=== PATIENT | female | born 1985 | race Caucasian/White ===

== ENCOUNTER 2017-11-17 12:05 | Inpatient (IN) ==
--- NOTE | 2017-11-17 13:09 | P.HPOB ---
Patient Name: Rubi Chew Date of : 89 Patient Status: Emergency Emergency Provider: Marvin Orourke Date: 11/17/17 13:03 Initialization Date: 11/17/17 13:03 History of Present Illness Primary Care Physician: No Primary Care Physician History of Present Illness: 31-year-old primigravida at 40 weeks 5 days gestation who comes today with complaint of contractions for the past 11 hours. She denies leakage of fluid or bleeding. She reports she was not dilated in the office yesterday. Obstetrical history: Primigravida followed by Dr. Schumacher. course has been uncomplicated. She reports being GBS negative. Review of Systems All other systems reviewed negative except as stated in HPI PMFSH - Medical / Surgical Hx Neg / Unobtainable Medical Problems Denied: Yes Surgical History: No Previous Surgery - Tobacco History Tobacco Use In Past 30 Days: No Smoking Status: Never smoker - Alcohol History How Often Do You Have a Drink Containing Alcohol: Monthly or less - Substance Use History Substance History: No History of Abuse - Travel History History of Recent Travel: No Recent Travel Out of the Country Within the Last 8 Weeks: No Exam Vital signs: Vital Signs 11/17/17 12:38 Temperature 98.2 F Pulse Rate 89 Respiratory Rate 18 Blood Pressure 128/86 Narrative: GENERAL: Well-nourished, well-developed patient. SKIN: Warm and dry. HEAD: Normocephalic and atraumatic. EYES: No scleral icterus. No injection or drainage. ENT: No nasal drainage noted. Mucous membranes pink. Airway patent. NECK: Supple, trachea midline. No JVD. CARDIOVASCULAR: Regular rate and rhythm without murmurs, gallops, or rubs. RESPIRATORY: Breath sounds equal bilaterally. No accessory muscle use. ABDOMEN/GI: Abdomen soft, non-tender, bowel sounds present, no rebound, no guarding Gravid to [-] weeks size Fundal Height: [-] GENITOURINARY: External Genitalia: intact and normal in appearance BUS glands: [Negative-] Cervix: [-] Dilatation: [2-] Effacement: [90-] Station: [--2] Presentation: [Vertex-] Membranes: [intact ] Uterine Contractions: [-Every 2] FHT's: Category: [1-] Baseline: [-] Reactive: [Yes-] Variability: [-] Decels: [-No] EXTREMITIES: No cyanosis or edema. BACK: Nontender without obvious deformity. No CVA tenderness. NEUROLOGICAL: Awake and alert. Motor and sensory grossly within normal limits. Five out of 5 muscle strength in all muscle groups. Normal speech. Assessment and Plan - Plan Assessment: Primigravida at 40 weeks 5 days gestation in early labor with a category 1 heart rate Plan: Admit for labor management. Discharge Plan - Discharge Disposition Patient Disposition: 30 Still Patient - Discharge Condition Condition: Stable - Physicians Team ED Provider: Marvin Orourke Primary Care Provider: Primary Care Physici,No - Discharge Instructions Print Language: Cook Islander
[2017-11-17] MEDS ORDERED: Sod Chloride 0.9% Inj 1,000 ML IV.CONT PRN (13:11)
[2017-11-17] MEDS ORDERED: Oxytocin 30 Units/500ml Premix 30 UNITS/500 ML BAG IV.SIG ONE (13:11)
[2017-11-17] MEDS ORDERED: Naloxone Inj 0.4 MG/ML Vial IV.PUSH PRN (13:11)
[2017-11-17] MEDS ORDERED: Sodium Chlor 0.9% Inj 500 ML IV.SIG PRN (13:11)
[2017-11-17] MEDS ORDERED: fentaNYL Citrate Inj 100 MCG/2 ML Ampul IV.PUSH PRN ×2 (13:11)
[2017-11-17] MEDS ORDERED: Citric Acid/Sodium Citrate Liq 30 ML UDC PO SCH (13:15)
[2017-11-17 14:36] LABS: Baso % (Auto) 0.3 % (0.0-2.0); Eos % (Auto) 0.2 % (0.0-4.0); Hematocrit 32.3 % (35.0-46.0); Hemoglobin 10.6 gm/dL (11.6-15.3); Lymph # (Auto) 1.4 th/mm3 (1.0-4.8); Lymph % (Auto) 12.8 % (9.0-44.0); Mean Corpuscular HGB Conc 32.9 % (32.0-36.0); Mean Corpuscular Hemoglobin 29.2 pg (27.0-34.0); Mean Corpuscular Volume 88.9 fL (80.0-100.0); Mean Platelet Volume 8.5 fL (7.0-11.0); Mono # (Auto) 0.9 th/mm3 (0.0-0.9); Mono % (Auto) 7.7 % (0.0-8.0); Neut # (Auto) 8.8 th/mm3 (1.8-7.7); Platelet Count 226 th/mm3 (150-450); Red Blood Count 3.63 mil/mm3 (4.00-5.30); Red Cell Distribution Width 13.3 % (11.6-17.2); White Blood Count 11.1 th/mm3 (4.0-11.0)
[2017-11-17 14:48] LABS: Bacteria,Urine Rare /hpf; Bilirubin,Urine Negative (Negative); Clarity,Urine Clear (Clear); Color,Urine Yellow (Yellw/Straw); Glucose,Urine (UA) Negative (Negative); Leukocyte Esterase,Urine Negative (Negative); Nitrite,Urine Negative (Negative); Squamous Epithelial Cell,Urine <1 /hpf (0-5)
[2017-11-17 15:21] LABS: Amphetamine Screen,Urine Neg (Neg); Barbiturate Screen,Urine Neg (Neg); Cannabinoid Screen,Urine Neg (Neg); Cocaine Screen,Urine Neg (Neg)
[2017-11-17 15:28] LABS: Opiate Screen,Urine Neg (Neg)
[2017-11-17] MEDS ORDERED: fentaNYL 2MCG-Bupiv 0.125% Epi 150 ML EPIDURAL ONE (22:11)
[2017-11-17] MEDS ORDERED: Lidocaaine 1.5%/Epinephrine 1:200,000 PF Inj 5 ML Amp ONE (22:18)
[2017-11-17] MEDS ORDERED: Lidocaine PF 1% Inj 5 ML Vial ONE (22:18)
[2017-11-17] MEDS ORDERED: Bupivacaine PF 0.25% Inj 10 ML Vial ONE (22:39)
[2017-11-17] MEDS ORDERED: fentaNYL 2MCG-Bupiv 0.125% Epi 150 ML EPIDURAL PRN (23:50)
[2017-11-17] MEDS ORDERED: fentaNYL Citrate Inj 100 MCG/2 ML Ampul EPIDURAL ONE (23:50)
[2017-11-18] MEDS ORDERED: Oxytocin 30 Units/500ml Premix 30 UNITS/500 ML BAG ONE (04:00)
[2017-11-18] MEDS ORDERED: Benzocaine 20% Top Spray 60 ML Can TOPICAL PRN (05:16)
[2017-11-18] MEDS ORDERED: Naloxone Inj 0.4 MG/ML Vial IV.PUSH PRN (05:16)
[2017-11-18] MEDS ORDERED: Acetaminophen 325 MG Tablet PO PRN (05:16)
[2017-11-18] MEDS ORDERED: Witch Hazel 50%/Glyderin 12.5% 40 Pad Jar RECTAL PRN (05:16)
[2017-11-18] MEDS ORDERED: Bisacodyl 10 MG Supp RECTAL PRN (05:16)
[2017-11-18] MEDS ORDERED: Zolpidem Tartrate 5 MG Tablet PO PRN (05:16)
[2017-11-18] MEDS ORDERED: Oxytocin 30 Units/500ml Premix 30 UNITS/500 ML BAG IV.CONT PRN (05:16)
--- NOTE | 2017-11-18 05:16 | P.OBDELI ---
Weeks Gestation: 40 Patient Started Active Labor: Yes Active Labor Start Date: 11/17/17 Active Labor Start Time: 14:00 Medical Induction of Labor: No Artificial Rupture of Membrane: Yes Artificial ROM Date: 11/17/17 Anesthesia: Epidural Episiotomy: none Vaginal Delivery: Normal Presentation: Occiput anterior Nuchal Cord: None Delayed Cord Clamping (45 sec): Yes Placenta: Spontaneous delivery Estimated blood loss (mL): 200 Infant: Female, Single
[2017-11-18] MEDS: Senna/Docusate Sodium 8.6/50 MG Tablet PO SCH (10:19)
[2017-11-18] MEDS ORDERED: Measles/Mumps/Rubella Vaccine Inj 0.5 ML Vial SQ ONE (16:00)
[2017-11-18] MEDS ORDERED: Diphtheria/Tetanus/Pertussis Vaccine Inj 0.5 ML Syringe IM ONE (16:00)
[2017-11-19] MEDS: Senna/Docusate Sodium 8.6/50 MG Tablet PO SCH ×2 (00:09→09:51)
[2017-11-19 08:13] VITALS: BP 96/50; PULSE 73; RESP 16; TEMP 98.4
--- NOTE | 2017-11-19 10:27 | P.PNOB ---
Subjective Post day: 1 Interval history: now doing well Objective Vital Signs/I&O: Vital Signs 11/18/17 20:00 11/19/17 08:00 Temperature 98.2 F 98.4 F Pulse Rate 83 73 Respiratory Rate 18 16 Blood Pressure 139/81 96/50 L Result Diagrams: 11/17/17 14:15 Objective Remarks: GENERAL: Well-nourished, well-developed patient. CARDIOVASCULAR: Regular rate and rhythm without murmurs, gallops, or rubs. RESPIRATORY: Breath sounds equal bilaterally. No accessory muscle use. ABDOMEN/GI: Abdomen soft, non-tender. Fundus: Firm, non-tender at umbilicus. GENITOURINARY: Light to moderate bleeding. EXTREMITIES: No cyanosis or edema, non-tender, without signs of DVT. Medications and IVs: Active Medications Acetaminophen (Tylenol) 650 mg PO Q4H PRN PRN Reason: PAIN SCALE 1 TO 2 Al Hydroxide/Mg Hydroxide (Milk Of Magnesia Liq) 30 ml PO Q12H PRN PRN Reason: Mild Constipation Benzocaine (Americaine 20% [place]) 1 spray TOPICAL Q4H PRN PRN Reason: For Perineum Discomfort Last Admin: 11/19/17 00:09 Dose: 1 spray Bisacodyl (Dulcolax Supp) 10 mg RECTAL DAILY PRN PRN Reason: SEVERE CONSITIPATION Fentanyl/Bupivacaine/Sodium Chlor (Fentanyl 2 Mcg-Bupiv 0.125% Epi) 150 mls @ 12 mls/hr EPIDURAL PRN PRN PRN Reason: for Labor Pain Oxytocin (Pitocin 30 Units/Ns 500 Ml Premix) 30 units in 500 mls @ 100 mls/hr IV.CONT UNSCH PRN PRN Reason: Heavy bleeding Ibuprofen (Motrin) 800 mg PO Q8H PRN PRN Reason: For Cramping Last Admin: 11/19/17 07:49 Dose: 800 mg Lactulose (Lactulose Liq) 30 ml PO DAILY PRN PRN Reason: SEVERE CONSITIPATION Naloxone HCl (Narcan Inj) 0.1 mg IV.PUSH Q2M PRN PRN Reason: for opiate reversal Ondansetron HCl (Zofran Odt) 4 mg PO Q6H PRN PRN Reason: NAUSEA OR VOMITING Senna/Docusate Sodium (Nel-Colace) 1 tab PO BID JOSE Last Admin: 11/19/17 09:51 Dose: 1 tab Sennosides (Senokot) 17.2 mg PO Q12H PRN PRN Reason: Moderate Constipation Sodium Chloride (Ns Flush) 2 ml IV.FLUSH BID [facility] Last Admin: 11/19/17 07:50 Dose: Not Given Sodium Chloride (Ns Flush) 2 ml IV.FLUSH PRN PRN PRN Reason: FLUSH AFTER USING IV ACCESS Witch Marifer/Glycerin (Tucks Pads) 1 applicatio RECTAL QID PRN PRN Reason: HEMORRHOIDS Last Admin: 11/19/17 00:09 Dose: 1 applicatio Zolpidem Tartrate (Ambien) 5 mg PO HS PRN PRN Reason: SLEEP Assessment and Plan - Diagnosis (1) (spontaneous vaginal delivery) Code(s): O80 - Encounter for full-term uncomplicated delivery Status: Acute - Plan dc home
--- NOTE | 2017-11-19 10:32 | P.DS ---
Date of admission: 11/17/17 13:15 Primary care physician: Stephenie Primary Care Physician Brief History from admission: came in labor at 40 weeks DS: Diagnosis - Discharge Diagnosis (1) (spontaneous vaginal delivery) Status: Acute DS: Medications - Discharge Medications Prescriptions: oxycodone-acetaminophen [Percocet] 1 tab PO Q4-6H PRN 3 Days #10 tab PRN Reason: Pain DS: Summary Hospital Course: Patient came in labor and . She remained in hospital 24 hours and wanted DC home - Time Spent with Patient Total time spent providing and/or coordinating discharge services: Less than 30 minutes Exam Vital signs: Vital Signs 11/18/17 20:00 11/19/17 08:00 Temperature 98.2 F 98.4 F Pulse Rate 83 73 Respiratory Rate 18 16 Blood Pressure 139/81 96/50 L - Constitutional no acute distress - Routine Abdominal Exam Present: soft, normoactive bowel sounds - Routine Extremities Exam Present: full ROM Results Procedures completed during hospitalization: vaginal Labs on day of discharge: Labs from last 24 hours 11/18/17 19:57 Blood Type O Negative Ab Screen Tube Method Negative Blood Bank Comment Discharge Plan - Discharge Disposition Patient Disposition: 01 Discharge Home - Discharge Condition Condition: Stable - Discharge Order Discharge Orders: Discharge Order (Routine); Ordered 11/19/17 Ordered By: Cruz Peralta - Physicians Team Primary Care Provider: Primary Care Stephenie Lara Attending Provider: Cruz Peralta
== END 2017-11-19 12:44 | disposition home or self-care (01) ==
LOC: HOBED 12:05 → H2E 13:15 → H1EA 11-18 07:37
PROVIDERS: ADMIT Obstetrics & Gynecology; ATTEND Obstetrics & Gynecology